=== PATIENT | male | born 1955 | race African-American/Black ===

== ENCOUNTER 2018-02-22 07:56 | Emergency (ER) | payer MEDICAID ==
[~2018-02-22] VITALS: Ht 167.6 cm; Wt 78.2 kg
[2018-02-22 07:59] VITALS: BP 157/84
[2018-02-22] MEDS ORDERED: DIPHENHYDRAMINE 25 MG CAPSULE ONE (08:28)
[2018-02-22] MEDS ORDERED: DIPHENHYDRAMINE 25 MG CAPSULE PO ONE (08:30)
== END 2018-02-22 08:54 | disposition home or self-care (01) ==
LOC: ED 08:34
DX: L40.0 Psoriasis vulgaris (principal); L50.8 Other urticaria
CPT/HCPCS: 99282; Q0163

== ENCOUNTER 2018-05-31 21:17 | Emergency (ER) | payer MEDICAID, MEDICARE ==
[~2018-05-31] VITALS: Ht 167.6 cm; Wt 68.3 kg
[2018-05-31 22:24] LABS: MEAN CORPUSCULAR HEMOGLOBIN 32.5 pg (27.5-34.5); MEAN CORPUSCULAR HGB CONC 33.4 g/dL (33.2-36.2); MEAN CORPUSCULAR VOLUME 97.3 fL (81-97); MEAN PLATELET VOLUME 8.8 fL (7.4-10.4); PLATELET COUNT 162 x10^3/uL (130-400); RED BLOOD COUNT 3.65 x10^6/uL (4.38-5.82); RED CELL DISTRIBUTION WIDTH 16.5 % (9.4-14.8)
[2018-05-31 22:28] LABS: ALANINE AMINOTRANSFERASE 56 U/L (12-78); ALBUMIN 3.6 g/dL (3.4-5.0); ANION GAP 12 mmol/L (5-15); CALCIUM 9.8 mg/dL (8.5-10.1); CHLORIDE 97 mmol/L (98-107)
[2018-05-31 22:33] LABS: ALKALINE PHOSPHATASE 199 U/L (45-117); BILIRUBIN,TOTAL 1.5 mg/dL (0.2-1.0); CREATININE 1.03 mg/dL (0.7-1.3); TOTAL PROTEIN 8.6 g/dL (6.4-8.2); TROPONIN I < 0.015 ng/mL (0.000-0.045)
[2018-05-31 22:51] LABS: MD YES
[2018-05-31 22:56] LABS: BANDS%(MANUAL) 4 % (0-7); EOS#(MANUAL) 0.05 x10^3/uL (0.0-0.4); EOS% (MANUAL) 2 % (1-7); LYMPH#(MANUAL) 0.73 x10^3/uL (1-3.4); LYMPHS% (MANUAL) 28 % (22-44); METAMYELOCYTES# (MANUAL) 0.03 x10^3/uL (0-0); METAMYELOCYTES% (MANUAL) 1 % (0-1); MONOS#(MANUAL) 0.26 x10^3/uL (0.3-2.7); MONOS% (MANUAL) 10 % (2-9); SEG#(MANUAL) 1.43 x10^3/uL (1.8-6.8); SEGS% (MANUAL) 55 % (42-75)
[2018-05-31 22:59] LABS: ANISOCYTOSIS 1+
[2018-05-31 23:00] LABS: <PLATELET ESTIMATE> ADEQUATE; <PLT MORPHOLOGY> NORMAL PLT MORPH
[2018-06-01 00:05] LABS: CULTURE INDICATED? YES; MICROSCOPIC INDICATED
[2018-06-01 00:13] LABS: AMPHETAMINE SCREEN, URINE Negative (Negative); BARBITURATE SCREEN, URINE Negative (Negative); BENZODIAZEPINE SCREEN, URINE Negative (Negative); CANNABINOID SCREEN, URINE Negative (Negative); COCAINE SCREEN, URINE Negative (Negative); METHADONE SCREEN, URINE Negative (Negative); OPIATE SCREEN, URINE Negative (Negative)
[2018-06-01 00:40] VITALS: BP 146/81
[2018-06-02] MEDS ORDERED: CEFU250T66 PO (13:38)
== END 2018-06-01 00:50 | disposition home or self-care (01) ==
LOC: MERGE 23:38 → ED 23:38 → EDBD 23:38 → ED 06-01 00:50
DX: R42 Dizziness and giddiness (principal); R53.1 Weakness; I10 Essential (primary) hypertension; Z79.899 Other long term (current) drug therapy
CPT/HCPCS: 36415; 70450; 80053; 80307; 81001; 84484; 85025; 87086; 87147; 93005; 99285

== ENCOUNTER 2018-06-01 09:53 | Inpatient (IN) | payer MEDICAID ==
[~2018-06-01] VITALS: Ht 167.6 cm; Wt 70.0 kg
[2018-06-01] MEDS ORDERED: SODIUM CHLORIDE FLUSH 10ML SYR IVF ONE (10:00)
[2018-06-01] MEDS ORDERED: SODIUM CHLORIDE 0.9% 1,000ML IVBOLUS ONE (10:00)
[2018-06-01 10:16] LABS: MEAN CORPUSCULAR HEMOGLOBIN 31.6 pg (27.5-34.5); MEAN CORPUSCULAR HGB CONC 33.1 g/dL (33.2-36.2); MEAN CORPUSCULAR VOLUME 95.4 fL (81-97); MEAN PLATELET VOLUME 8.6 fL (7.4-10.4); PLATELET COUNT 166 x10^3/uL (130-400); RED BLOOD COUNT 3.45 x10^6/uL (4.38-5.82); RED CELL DISTRIBUTION WIDTH 16.4 % (9.4-14.8)
[2018-06-01 10:26] LABS: ALANINE AMINOTRANSFERASE 49 U/L (12-78); ALBUMIN 3.3 g/dL (3.4-5.0); ANION GAP 14 mmol/L (5-15); CALCIUM 9.3 mg/dL (8.5-10.1); CHLORIDE 96 mmol/L (98-107)
[2018-06-01 10:29] LABS: ALKALINE PHOSPHATASE 171 U/L (45-117); BILIRUBIN,TOTAL 1.8 mg/dL (0.2-1.0); CREATININE 1.12 mg/dL (0.7-1.3)
[2018-06-01 10:33] LABS: MD YES
[2018-06-01 10:36] LABS: ANISOCYTOSIS 1+; BAND#(MANUAL) 0.12 x10^3/uL; BANDS%(MANUAL) 6 % (0-7); EOS#(MANUAL) 0.02 x10^3/uL (0.0-0.4); EOS% (MANUAL) 1 % (1-7); LYMPH#(MANUAL) 0.52 x10^3/uL (1-3.4); LYMPHS% (MANUAL) 26 % (22-44); METAMYELOCYTES# (MANUAL) 0.02 x10^3/uL (0-0); METAMYELOCYTES% (MANUAL) 1 % (0-1); MONOS% (MANUAL) 15 % (2-9); REACTIVE LYMPHS # (MANUAL) 0.02 x10^3/uL (0-0); REACTIVE LYMPHS % (MANUAL) 1 % (0-0); SEGS% (MANUAL) 50 % (42-75)
[2018-06-01 10:37] LABS: <PLATELET ESTIMATE> ADEQUATE; <PLT MORPHOLOGY> NORMAL PLT MORPH
[2018-06-01 11:48] LABS: CULTURE INDICATED? YES; MICROSCOPIC INDICATED
[2018-06-01 11:57] LABS: AMPHETAMINE SCREEN, URINE Negative (Negative); BARBITURATE SCREEN, URINE Negative (Negative); BENZODIAZEPINE SCREEN, URINE Negative (Negative); CANNABINOID SCREEN, URINE Negative (Negative); COCAINE SCREEN, URINE Negative (Negative); METHADONE SCREEN, URINE Negative (Negative); OPIATE SCREEN, URINE Negative (Negative)
[2018-06-01] MEDS ORDERED: POTASSIUM CHLORIDE 40 MEQ in SODIUM CHLORIDE 0.9% 500 ML IV ONE (12:00)
[2018-06-01] MEDS ORDERED: CEFTRIAXONE PMX 1GM/50ML 50 ML IV ONE (12:30)
[2018-06-01] MEDS ORDERED: CEFTRIAXONE PMX 1GM/50ML 50 ML ONE (12:37)
[2018-06-01] MEDS ORDERED: LORazepam 1MG TABLET PO PRN ×3 (14:00)
[2018-06-01] MEDS ORDERED: LORazepam 0.5MG TABLET PO PRN (14:00)
[2018-06-01] MEDS: POTASSIUM CHLORIDE 40 MEQ in SODIUM CHLORIDE 0.9% 500 ML IV ONE ×2 (14:00→18:50)
[2018-06-01] MEDS ORDERED: LORazepam 2 MG/ML, 1ML IV PRN ×4 (14:00)
[2018-06-01 14:29] VITALS: BP 155/92
[2018-06-01 15:29] LABS: THYROID STIMULATING HORMONE 0.95 mIU/L (0.358-3.740)
[2018-06-01] MEDS: HEPARIN 5,000 UNITS/ML, 1ML SQ SCH (16:28)
[2018-06-01] MEDS: THIAMINE 100 MG, MVI ADULT 10 ML, FOLIC ACID 1 MG in D5%-0.9% NACL 1,000 ML IV SCH (16:48)
[2018-06-01] MEDS: POTASSIUM CHLORIDE 20 MEQ TAB.ER.PRT PO SCH (18:49)
[2018-06-01 19:15] VITALS: BP 127/79
[2018-06-01] MEDS ORDERED: MAGNESIUM SULFATE 6 GM in SODIUM CHLORIDE 0.9% 150 ML IV ONE (20:30)
[2018-06-01] MEDS ORDERED: POTASSIUM PHOSPHATE 22 MEQ in SODIUM CHLORIDE 0.9% 500 ML IV ONE (20:30)
[2018-06-02 00:12] LABS: CLOSTRIDIUM DIFFICILE ANTIGEN NEGATIVE; CLOSTRIDIUM DIFFICILE TOXIN NEGATIVE (Negative)
[2018-06-02] MEDS: HEPARIN 5,000 UNITS/ML, 1ML SQ SCH ×3 (00:38→16:00)
[2018-06-02 00:40] VITALS: BP 134/84
[2018-06-02 05:54] LABS: BASOPHILS % (AUTO) 0 % (0-1); EOSINOPHILS # (AUTO) 0.06 x10^3/uL (0-0.4); EOSINOPHILS % (AUTO) 3 % (1-7); LYMPHOCYTES # (AUTO) 0.65 x10^3/uL (1-3.4); LYMPHOCYTES % (AUTO) 33 % (22-44); MD NO; MEAN CORPUSCULAR HEMOGLOBIN 32.4 pg (27.5-34.5); MEAN CORPUSCULAR HGB CONC 33.6 g/dL (33.2-36.2); MEAN CORPUSCULAR VOLUME 96.6 fL (81-97); MEAN PLATELET VOLUME 8.4 fL (7.4-10.4); MONOCYTES # (AUTO) 0.24 x10^3/uL (0.2-0.8); MONOCYTES % (AUTO) 12 % (2-9); NEUTROPHILS # (AUTO) 1.01 x10^3/uL (1.8-6.8); NEUTROPHILS % (AUTO) 52 % (42-75); PLATELET COUNT 132 x10^3/uL (130-400); RED CELL DISTRIBUTION WIDTH 16.7 % (9.4-14.8)
[2018-06-02 05:59] LABS: ALBUMIN 2.6 g/dL (3.4-5.0); ANION GAP 6 mmol/L (5-15); CALCIUM 8.3 mg/dL (8.5-10.1); CHLORIDE 109 mmol/L (98-107)
[2018-06-02 06:11] LABS: CREATININE 0.62 mg/dL (0.7-1.3)
[2018-06-02 06:12] LABS: ALANINE AMINOTRANSFERASE 34 U/L (12-78); ALKALINE PHOSPHATASE 134 U/L (45-117); BILIRUBIN,TOTAL 1.4 mg/dL (0.2-1.0); THYROID STIMULATING HORMONE 0.686 mIU/L (0.358-3.740); TOTAL PROTEIN 6.3 g/dL (6.4-8.2)
[2018-06-02 08:00] VITALS: BP 130/79
[2018-06-02] MEDS: POTASSIUM CHLORIDE 20 MEQ TAB.ER.PRT PO SCH ×3 (09:26→17:00)
[2018-06-02] MEDS ORDERED: CEFTRIAXONE PMX 1GM/50ML 50 ML IV SCH (12:00)
[2018-06-02] MEDS ORDERED: CEFTRIAXONE 1,000 MG in SODIUM CHLORIDE 0.9% 50 ML IVPB SCH (12:30)
[2018-06-02 12:50] VITALS: BP 130/68
[2018-06-02] MEDS ORDERED: CEFU250T66 PO (13:38)
[2018-06-02] MEDS: THIAMINE 100 MG, MVI ADULT 10 ML, FOLIC ACID 1 MG in D5%-0.9% NACL 1,000 ML IV SCH (14:00)
[2018-06-02] MEDS ORDERED: PNEUMOCOCCAL 23 VACCINE IM-VACC ONE (17:30)
== END 2018-06-02 17:39 | disposition home or self-care (01) | DRG 872 ==
LOC: ED 11:33 → EDIP 12:29 → 4WST 13:34
PROVIDERS: ADMIT Hospitalist; ATTEND Hospitalist
DX: A41.9 Sepsis, unspecified organism (principal); E44.1 Mild protein-calorie malnutrition; E87.1 Hypo-osmolality and hyponatremia; N30.00 Acute cystitis without hematuria; D64.9 Anemia, unspecified; D70.9 Neutropenia, unspecified; E83.42 Hypomagnesemia; E86.0 Dehydration; E87.6 Hypokalemia; F10.129 Alcohol abuse with intoxication, unspecified; I10 Essential (primary) hypertension; K70.10 Alcoholic hepatitis without ascites; B95.1 Streptococcus, group B, as the cause of diseases classified elsewhere; K76.0 Fatty (change of) liver, not elsewhere classified; Z91.83 Wandering in diseases classified elsewhere; Z68.24 Body mass index [BMI] 24.0-24.9, adult; R41.0 Disorientation, unspecified
CPT/HCPCS: 36415; 70450; 76700; 80053; 80307; 81001; 82140; 82607; 83735; 84100; 84443; 85025; 86704; 86706; 86708; 86803; 87040; 87086; 87147; 87324; 87340; 87806; 90732; 93005; 96360; 96361; J0696; J1644; J3411; J3475; J3480; J7042; G0475; J7030; J7040

== ENCOUNTER 2018-07-29 05:23 | Inpatient (IN) | payer MEDICAID ==
[~2018-07-29] VITALS: Ht 167.6 cm; Wt 66.0 kg
[~2018-07-29 05:23] MED LIST: CEFU250T66 PO; DOCU-131 PO; ERGO500017 PO; FOLI-17 PO; LISI-167 PO; MAGN64TA7 PO; THIA100T67 PO
[2018-07-29] MEDS ORDERED: SODIUM CHLORIDE FLUSH 10ML SYR IVF ONE (06:00)
[2018-07-29] MEDS ORDERED: LORazepam 2 MG/ML, 1ML IVPush ONE (06:00)
[2018-07-29 06:45] LABS: BASOPHILS # (AUTO) 0.04 x10^3/uL (0-0.1); BASOPHILS % (AUTO) 1 % (0-1); EOSINOPHILS # (AUTO) 0.42 x10^3/uL (0-0.4); EOSINOPHILS % (AUTO) 5 % (1-7); LYMPHOCYTES # (AUTO) 1.81 x10^3/uL (1-3.4); LYMPHOCYTES % (AUTO) 21 % (22-44); MD NO; MEAN CORPUSCULAR HEMOGLOBIN 30.6 pg (27.5-34.5); MEAN CORPUSCULAR HGB CONC 33.5 g/dL (33.2-36.2); MEAN CORPUSCULAR VOLUME 91.5 fL (81-97); MEAN PLATELET VOLUME 8.1 fL (7.4-10.4); MONOCYTES # (AUTO) 0.53 x10^3/uL (0.2-0.8); MONOCYTES % (AUTO) 6 % (2-9); NEUTROPHILS # (AUTO) 5.91 x10^3/uL (1.8-6.8); NEUTROPHILS % (AUTO) 68 % (42-75); PLATELET COUNT 431 x10^3/uL (130-400); RED BLOOD COUNT 3.36 x10^6/uL (4.38-5.82); RED CELL DISTRIBUTION WIDTH 16.1 % (9.4-14.8)
[2018-07-29 06:56] LABS: ALBUMIN 2.6 g/dL (3.4-5.0); ANION GAP 8 mmol/L (5-15); CALCIUM 8.7 mg/dL (8.5-10.1); CHLORIDE 107 mmol/L (98-107)
[2018-07-29 06:57] LABS: SALICYLATE LEVEL < 1.7 mg/dL (2.8-20.0)
[2018-07-29 06:59] LABS: ALANINE AMINOTRANSFERASE 31 U/L (12-78); ALKALINE PHOSPHATASE 175 U/L (45-117); BILIRUBIN,TOTAL 0.5 mg/dL (0.2-1.0); CREATININE 0.62 mg/dL (0.7-1.3); TOTAL PROTEIN 8.4 g/dL (6.4-8.2)
[2018-07-29] MEDS ORDERED: LORazepam 2 MG/ML, 1ML ONE (07:05)
[2018-07-29 07:13] LABS: ACETAMINOPHEN < 2 mcg/mL (10-30)
[2018-07-29 07:30] LABS: MICROSCOPIC NOT IND
[2018-07-29] MEDS ORDERED: POTASSIUM CHLORIDE 20 MEQ TAB.ER.PRT PO ONE (07:30)
[2018-07-29 07:31] LABS: CULTURE INDICATED? NO
[2018-07-29] MEDS ORDERED: POTASSIUM CHLORIDE 20 MEQ TAB.ER.PRT ONE (07:31)
[2018-07-29 07:32] LABS: TROPONIN I < 0.015 ng/mL (0.000-0.045)
[2018-07-29] MEDS ORDERED: POTASSIUM CHLORIDE 20 MEQ in SODIUM CHLORIDE 0.9% 1,000 ML IV ONE (07:33)
[2018-07-29] MEDS ORDERED: ACETAMINOPHEN 325 MG TABLET PO PRN (08:00)
[2018-07-29] MEDS ORDERED: LABETALOL 5MG/ML, 20ML IVPush PRN ×2 (08:00→11:30)
[2018-07-29] MEDS ORDERED: ONDANSETRON 2MG/ML, 2ML IVPush PRN (08:00)
[2018-07-29] MEDS ORDERED: SODIUM CHLORIDE FLUSH 10ML SYR IVF PRN (08:00)
[2018-07-29] MEDS ORDERED: POTASSIUM CHLORIDE 40 MEQ in SODIUM CHLORIDE 0.9% 500 ML IV ONE (08:30)
[2018-07-29 08:42] VITALS: BP 192/96
[2018-07-29] MEDS ORDERED: DOCUSATE 100 MG CAPSULE PO PRN (09:00)
[2018-07-29] MEDS ORDERED: ERGOCALCIFEROL 50,000 UNIT CAPSULE PO SCH (09:00)
[2018-07-29] MEDS: SODIUM CHLORIDE 0.9% 1,000 ML IV SCH (09:06)
[2018-07-29] MEDS: FOLIC ACID 1 MG TABLET PO SCH (09:07)
[2018-07-29] MEDS: MAGNESIUM CHLORIDE 64 MG TABLET.DR PO SCH ×2 (09:07→20:58)
[2018-07-29] MEDS: LISINOPRIL 10 MG TABLET PO SCH (09:07)
[2018-07-29] MEDS: THIAMINE 100MG TABLET PO SCH (09:07)
[2018-07-29] MEDS: AMLODIPINE 5 MG TABLET PO SCH (09:07)
[2018-07-29] MEDS: ENOXAPARIN 40 MG/0.4 ML SQ SCH (09:07)
[2018-07-29 09:12] LABS: AMPHETAMINE SCREEN, URINE Negative (Negative); BARBITURATE SCREEN, URINE Negative (Negative); BENZODIAZEPINE SCREEN, URINE Negative (Negative); CANNABINOID SCREEN, URINE Negative (Negative); COCAINE SCREEN, URINE Negative (Negative); METHADONE SCREEN, URINE Negative (Negative); OPIATE SCREEN, URINE Negative (Negative)
[2018-07-29 09:43] VITALS: BP 189/92
[2018-07-29 10:36] LABS: AMPHETAMINE SCREEN, URINE Negative (Negative); BARBITURATE SCREEN, URINE Negative (Negative); BENZODIAZEPINE SCREEN, URINE Negative (Negative); CANNABINOID SCREEN, URINE Negative (Negative); COCAINE SCREEN, URINE Negative (Negative); METHADONE SCREEN, URINE Negative (Negative); OPIATE SCREEN, URINE Negative (Negative)
[2018-07-29] MEDS ORDERED: MAGNESIUM SULFATE PMX 2GM/50ML 50 ML IV ONE (11:30)
[2018-07-29 11:39] VITALS: BP 173/81
[2018-07-29] MEDS ORDERED: HYDROCHLOROTHIAZIDE 25 MG TABLET PO ONE (12:30)
[2018-07-29] MEDS: NICOTINE 21 MG/24 HR PATCH.TD24 TD SCH (13:30)
[2018-07-29] MEDS ORDERED: ENALAPRILAT 1.25 MG/ML, 2ML IV PRN (13:30)
[2018-07-29 13:45] VITALS: BP 147/90
[2018-07-29 16:25] LABS: ANION GAP 7 mmol/L (5-15); CALCIUM 8.8 mg/dL (8.5-10.1); CHLORIDE 107 mmol/L (98-107); CREATININE 0.57 mg/dL (0.7-1.3)
[2018-07-29] MEDS ORDERED: GADOBUTROL 7.5 MMOL/7.5 ML PFS ONE (16:37)
[2018-07-29] MEDS: POTASSIUM CHLORIDE 20 MEQ TAB.ER.PRT PO SCH (17:58)
[2018-07-29 20:35] VITALS: BP 165/85
[2018-07-29] MEDS: ATORVASTATIN 40 MG TABLET PO SCH (20:58)
[2018-07-30 02:19] VITALS: BP 150/81
[2018-07-30 06:10] LABS: CHLORIDE 106 mmol/L (98-107)
[2018-07-30 06:14] LABS: ALANINE AMINOTRANSFERASE 28 U/L (12-78); ALBUMIN 2.2 g/dL (3.4-5.0); ALKALINE PHOSPHATASE 156 U/L (45-117); ANION GAP 10 mmol/L (5-15); BILIRUBIN,TOTAL 0.5 mg/dL (0.2-1.0); CALCIUM 8.7 mg/dL (8.5-10.1); CREATININE 0.62 mg/dL (0.7-1.3); TOTAL PROTEIN 7.2 g/dL (6.4-8.2)
[2018-07-30 06:22] LABS: BASOPHILS # (AUTO) 0.04 x10^3/uL (0-0.1); BASOPHILS % (AUTO) 1 % (0-1); EOSINOPHILS # (AUTO) 0.29 x10^3/uL (0-0.4); EOSINOPHILS % (AUTO) 4 % (1-7); LYMPHOCYTES # (AUTO) 1.99 x10^3/uL (1-3.4); LYMPHOCYTES % (AUTO) 26 % (22-44); MD NO; MEAN CORPUSCULAR HEMOGLOBIN 30.9 pg (27.5-34.5); MEAN CORPUSCULAR HGB CONC 33.3 g/dL (33.2-36.2); MEAN CORPUSCULAR VOLUME 92.6 fL (81-97); MEAN PLATELET VOLUME 8.6 fL (7.4-10.4); MONOCYTES % (AUTO) 9 % (2-9); NEUTROPHILS # (AUTO) 4.75 x10^3/uL (1.8-6.8); NEUTROPHILS % (AUTO) 61 % (42-75); PLATELET COUNT 377 x10^3/uL (130-400); RED BLOOD COUNT 3.19 x10^6/uL (4.38-5.82); RED CELL DISTRIBUTION WIDTH 15.3 % (9.4-14.8)
[2018-07-30 06:50] VITALS: BP 147/88
[2018-07-30] MEDS: SODIUM CHLORIDE 0.9% 1,000 ML IV SCH (07:30)
[2018-07-30] MEDS: MAGNESIUM CHLORIDE 64 MG TABLET.DR PO SCH ×2 (08:56→20:04)
[2018-07-30] MEDS: FOLIC ACID 1 MG TABLET PO SCH (08:56)
[2018-07-30] MEDS: AMLODIPINE 5 MG TABLET PO SCH (08:56)
[2018-07-30] MEDS: ENOXAPARIN 40 MG/0.4 ML SQ SCH (08:57)
[2018-07-30] MEDS: POTASSIUM CHLORIDE 20 MEQ TAB.ER.PRT PO SCH ×2 (08:57→17:15)
[2018-07-30] MEDS: ASPIRIN 81 MG TABLET CHEW PO SCH (08:57)
[2018-07-30] MEDS: LISINOPRIL 10 MG TABLET PO SCH (08:57)
[2018-07-30] MEDS: THIAMINE 100MG TABLET PO SCH (08:57)
[2018-07-30] MEDS ORDERED: HYDROCHLOROTHIAZIDE 25 MG TABLET PO SCH (09:00)
[2018-07-30 14:20] VITALS: BP 166/84
[2018-07-30] MEDS: NICOTINE 21 MG/24 HR PATCH.TD24 TD SCH (17:15)
[2018-07-30 17:19] VITALS: BP 166/78
[2018-07-30 18:39] VITALS: BP 174/90
[2018-07-30] MEDS: ATORVASTATIN 40 MG TABLET PO SCH (20:03)
[2018-07-30] MEDS: MAGNESIUM OXIDE 400 MG TABLET PO SCH (20:04)
[2018-07-30 20:51] VITALS: BP 156/83
[2018-07-31 00:05] VITALS: BP 181/84
[2018-07-31 02:49] VITALS: BP 162/84
[2018-07-31 05:42] LABS: BASOPHILS # (AUTO) 0.04 x10^3/uL (0-0.1); BASOPHILS % (AUTO) 1 % (0-1); EOSINOPHILS # (AUTO) 0.32 x10^3/uL (0-0.4); EOSINOPHILS % (AUTO) 4 % (1-7); LYMPHOCYTES # (AUTO) 2.02 x10^3/uL (1-3.4); LYMPHOCYTES % (AUTO) 26 % (22-44); MD NO; MEAN CORPUSCULAR HEMOGLOBIN 31.5 pg (27.5-34.5); MEAN CORPUSCULAR HGB CONC 33.5 g/dL (33.2-36.2); MEAN PLATELET VOLUME 8.3 fL (7.4-10.4); MONOCYTES # (AUTO) 0.65 x10^3/uL (0.2-0.8); MONOCYTES % (AUTO) 8 % (2-9); NEUTROPHILS # (AUTO) 4.79 x10^3/uL (1.8-6.8); NEUTROPHILS % (AUTO) 61 % (42-75); PLATELET COUNT 432 x10^3/uL (130-400); RED BLOOD COUNT 2.98 x10^6/uL (4.38-5.82); RED CELL DISTRIBUTION WIDTH 15.9 % (9.4-14.8)
[2018-07-31 05:52] LABS: ALBUMIN 2.3 g/dL (3.4-5.0); ANION GAP 9 mmol/L (5-15); CALCIUM 8.8 mg/dL (8.5-10.1); CHLORIDE 106 mmol/L (98-107)
[2018-07-31 05:56] LABS: ALANINE AMINOTRANSFERASE 26 U/L (12-78); ALKALINE PHOSPHATASE 161 U/L (45-117); BILIRUBIN,TOTAL 0.4 mg/dL (0.2-1.0); TOTAL PROTEIN 7.5 g/dL (6.4-8.2)
[2018-07-31 06:35] VITALS: BP 169/84
[2018-07-31] MEDS ORDERED: HYDROCHLOROTHIAZIDE 25 MG TABLET PO SCH (09:00)
[2018-07-31] MEDS ORDERED: AMLODIPINE 5 MG TABLET PO SCH (09:00)
[2018-07-31] MEDS ORDERED: LISINOPRIL 20 MG TABLET PO SCH (09:00)
[2018-07-31] MEDS: ENOXAPARIN 40 MG/0.4 ML SQ SCH (09:05)
[2018-07-31] MEDS: ASPIRIN 81 MG TABLET CHEW PO SCH (09:05)
[2018-07-31] MEDS: MAGNESIUM OXIDE 400 MG TABLET PO SCH (09:06)
[2018-07-31] MEDS: FOLIC ACID 1 MG TABLET PO SCH (09:06)
[2018-07-31] MEDS: THIAMINE 100MG TABLET PO SCH (09:06)
[2018-07-31] MEDS ORDERED: HYDR25TA6 PO (11:00)
[2018-07-31] MEDS ORDERED: AMLO5TAB2 PO (11:00)
[2018-07-31] MEDS ORDERED: ASPI-515 PO (11:00)
[2018-07-31] MEDS ORDERED: MAGN400T26 PO (11:00)
[2018-07-31] MEDS ORDERED: NICO-487 TD (11:00)
[2018-07-31] MEDS ORDERED: LISI-170 PO (11:00)
[2018-07-31] MEDS ORDERED: ATOR40TA78 PO (11:00)
[2018-07-31 13:37] VITALS: BP 146/86
[2018-07-31] MEDS: NICOTINE 21 MG/24 HR PATCH.TD24 TD SCH (16:36)
== END 2018-07-31 17:07 | DRG 433 ==
LOC: ED 07:24 → EDIP 07:33 → 4EST 08:34
PROVIDERS: ADMIT Internal Medicine; ATTEND Internal Medicine
DX: K70.10 Alcoholic hepatitis without ascites (principal); I67.4 Hypertensive encephalopathy; E44.0 Moderate protein-calorie malnutrition; D64.9 Anemia, unspecified; E87.6 Hypokalemia; F01.50 Vascular dementia, unspecified severity, without behavioral disturbance, psychotic disturbance, mood disturbance, and anxiety; F10.10 Alcohol abuse, uncomplicated; F17.200 Nicotine dependence, unspecified, uncomplicated; I10 Essential (primary) hypertension; I16.0 Hypertensive urgency; Z59.0 Homelessness; Z86.73 Personal history of transient ischemic attack (TIA), and cerebral infarction without residual deficits; Z68.23 Body mass index [BMI] 23.0-23.9, adult
CPT/HCPCS: 36415; 70450; 70553; 71045; 80048; 80053; 80307; 80329; 81003; 82140; 82607; 83735; 84443; 84484; 85025; 86780; 87806; 93005; 96374; 99285; A9585; J1650; J3480; G0475; G0480; J2060; J3475; J7030; J7040

== ENCOUNTER 2018-12-01 09:21 | Inpatient (IN) | payer MEDICAID ==
[~2018-12-01] VITALS: Ht 167.6 cm; Wt 77.9 kg
[~2018-12-01 09:21] MED LIST changes: +AMLO-150 PO; +ASPI-515 PO; +ATOR40TA78 PO; +HYDR25TA6 PO; +LISI-170 PO; +MAGN400T26 PO; +NICO-487 TD
[2018-12-01] MEDS ORDERED: METHOCARBAMOL 750 MG TABLET ONE (09:52)
[2018-12-01] MEDS ORDERED: IBUPROFEN 200 MG TABLET ONE (09:52)
[2018-12-01 09:59] LABS: BASOPHILS # (AUTO) 0.02 x10^3/uL (0-0.1); BASOPHILS % (AUTO) 0 % (0-1); EOSINOPHILS # (AUTO) 0.14 x10^3/uL (0-0.4); EOSINOPHILS % (AUTO) 2 % (1-7); LYMPHOCYTES # (AUTO) 2.36 x10^3/uL (1-3.4); LYMPHOCYTES % (AUTO) 25 % (22-44); MD NO; MEAN CORPUSCULAR HEMOGLOBIN 27.9 pg (27.5-34.5); MEAN CORPUSCULAR VOLUME 84.3 fL (81-97); MEAN PLATELET VOLUME 7.8 fL (7.4-10.4); MONOCYTES # (AUTO) 0.83 x10^3/uL (0.2-0.8); MONOCYTES % (AUTO) 9 % (2-9); NEUTROPHILS # (AUTO) 6.16 x10^3/uL (1.8-6.8); NEUTROPHILS % (AUTO) 65 % (42-75); PLATELET COUNT 249 x10^3/uL (130-400); RED BLOOD COUNT 4.08 x10^6/uL (4.38-5.82); RED CELL DISTRIBUTION WIDTH 13.8 % (9.4-14.8)
[2018-12-01] MEDS ORDERED: METHOCARBAMOL 750 MG TABLET PO ONE (10:00)
[2018-12-01] MEDS ORDERED: IBUPROFEN 200 MG TABLET PO ONE (10:00)
[2018-12-01 10:02] LABS: ALANINE AMINOTRANSFERASE 26 U/L (12-78); ALBUMIN 3.9 g/dL (3.4-5.0); ANION GAP 9 mmol/L (5-15); CALCIUM 9.9 mg/dL (8.5-10.1); CHLORIDE 104 mmol/L (98-107); CREATININE 0.94 mg/dL (0.7-1.3)
--- NOTE | 2018-12-01 10:02 | NUR ---
pt laying on gurney awake & comfortable, responds approp to staff, NAD, comfort measures provided, friend at BS, call light within reach. pt to CT.
[2018-12-01 10:04] LABS: ALKALINE PHOSPHATASE 105 U/L (45-117); BILIRUBIN,TOTAL 0.3 mg/dL (0.2-1.0); TOTAL PROTEIN 8.4 g/dL (6.4-8.2)
--- NOTE | 2018-12-01 10:53 | NUR ---
pt continues to lay on gurney awake & comfortable, responds approp to staff, NAD, comfort measures provided, call light within reach.
[2018-12-01 10:56] LABS: MICROSCOPIC NOT IND
[2018-12-01 10:59] LABS: CULTURE INDICATED? NO
[2018-12-01] MEDS ORDERED: LORA-445 PO (11:25)
[2018-12-01] MEDS ORDERED: SODIUM CHLORIDE FLUSH 10ML SYR IVF PRN (11:30)
--- NOTE | 2018-12-01 11:49 | NUR ---
Pt to be admitted to [facility], room 402-1. Report called to Jono.
[2018-12-01] MEDS ORDERED: LORazepam 0.5MG TABLET PO PRN (12:00)
[2018-12-01] MEDS ORDERED: GABAPENTIN 300 MG CAPSULE PO PRN (12:00)
[2018-12-01] MEDS ORDERED: CYCLOBENZAPRINE 10 MG TABLET PO PRN (12:00)
[2018-12-01] MEDS ORDERED: ENALAPRILAT 1.25 MG/ML, 2ML IV PRN (12:00)
[2018-12-01] MEDS ORDERED: POLYETHYLENE GLYCOL 17 GM PACKET PO PRN (12:00)
[2018-12-01] MEDS ORDERED: ACETAMINOPHEN 325 MG TABLET PO PRN (12:00)
[2018-12-01] MEDS ORDERED: BISACODYL 10 MG SUPP PR PRN (12:00)
[2018-12-01] MEDS ORDERED: ONDANSETRON 2MG/ML, 2ML IVPush PRN (12:00)
[2018-12-01] MEDS ORDERED: DOCUSATE 100 MG CAPSULE PO PRN (12:00)
[2018-12-01 13:14] VITALS: BP 114/73
[2018-12-01 16:03] VITALS: BP 135/74
[2018-12-01 18:16] VITALS: BP 129/76
[2018-12-01 19:58] VITALS: BP 133/79
[2018-12-01] MEDS: MAGNESIUM OXIDE 400 MG TABLET PO SCH (20:32)
[2018-12-01] MEDS ORDERED: ATORVASTATIN 80 MG TABLET PO SCH (21:00)
[2018-12-02 03:30] VITALS: BP 127/68
[2018-12-02 06:26] LABS: CHOL/HDL RATIO 2.3; LDL/HDL RATIO 1.1 (0.5-3.0)
[2018-12-02 07:50] VITALS: BP 112/72
[2018-12-02] MEDS: MAGNESIUM OXIDE 400 MG TABLET PO SCH (08:56)
[2018-12-02] MEDS ORDERED: ASPIRIN 81 MG TABLET CHEW PO/NG SCH (09:00)
[2018-12-02] MEDS ORDERED: THIAMINE 100MG TABLET PO SCH (09:00)
[2018-12-02] MEDS ORDERED: AMLODIPINE 10 MG TAB PO SCH (09:00)
[2018-12-02] MEDS ORDERED: FOLIC ACID 1 MG TABLET PO SCH (09:00)
[2018-12-02] MEDS ORDERED: LISINOPRIL 20 MG TABLET PO SCH (09:00)
[2018-12-02] MEDS ORDERED: CYCL-259 PO (11:48)
[2018-12-02 11:55] VITALS: BP 119/76
[2018-12-02] MEDS ORDERED: SODIUM CHLORIDE 0.9%, 500ML IVBOLUS ONE (14:00)
[2018-12-02 14:08] LABS: THYROID STIMULATING HORMONE 0.763 mIU/L (0.358-3.740)
[2018-12-02] MEDS ORDERED: MAGNESIUM OXIDE 400 MG TABLET PO SCH (21:00)
== END 2018-12-02 18:29 | DRG 552 ==
LOC: ED 11:04 → EDIP 11:34 → 4WST 12:07 → 4EST 20:58
PROVIDERS: ADMIT Hospitalist; ATTEND Hospitalist
DX: M62.830 Muscle spasm of back (principal); F02.81 Dementia in other diseases classified elsewhere, unspecified severity, with behavioral disturbance; S39.012A Strain of muscle, fascia and tendon of lower back, initial encounter; R73.9 Hyperglycemia, unspecified; D64.9 Anemia, unspecified; I11.9 Hypertensive heart disease without heart failure; R62.7 Adult failure to thrive; M51.36 Other intervertebral disc degeneration, lumbar region; F10.10 Alcohol abuse, uncomplicated; G30.0 Alzheimer's disease with early onset; I65.23 Occlusion and stenosis of bilateral carotid arteries; Z82.3 Family history of stroke; Z86.73 Personal history of transient ischemic attack (TIA), and cerebral infarction without residual deficits; Z83.3 Family history of diabetes mellitus; Z87.891 Personal history of nicotine dependence; Z80.9 Family history of malignant neoplasm, unspecified
CPT/HCPCS: 36415; 70450; 70551; 71045; 72110; 80053; 80061; 81003; 83735; 84443; 85025; 93005; 93306; 93880; G0378; 92523-GN; J7040

== ENCOUNTER 2019-08-10 18:48 | Inpatient (IN) | payer MEDICAID ==
[~2019-08-10] VITALS: Ht 170.2 cm; Wt 82.8 kg
[~2019-08-10 18:48] MED LIST changes: +CYCL-259 PO; +LORA-445 PO
[2019-08-10] MEDS ORDERED: SODIUM CHLORIDE FLUSH 10ML SYR IVF ONE (19:30)
[2019-08-10 19:44] LABS: ALBUMIN 3.5 g/dL (3.4-5.0); ANION GAP 8 mmol/L (5-15); CALCIUM 8.9 mg/dL (8.5-10.1); CHLORIDE 109 mmol/L (98-107)
[2019-08-10 19:49] LABS: ALANINE AMINOTRANSFERASE 30 U/L (12-78); ALKALINE PHOSPHATASE 121 U/L (45-117); BILIRUBIN,TOTAL 0.3 mg/dL (0.2-1.0); CREATININE 1.07 mg/dL (0.7-1.3); TOTAL PROTEIN 7.4 g/dL (6.4-8.2); TROPONIN I < 0.015 ng/mL (0.000-0.045)
[2019-08-10 20:18] LABS: BASOPHILS # (AUTO) 0.01 x10^3/uL (0-0.1); BASOPHILS % (AUTO) 0 % (0-1); EOSINOPHILS # (AUTO) 0.05 x10^3/uL (0-0.4); EOSINOPHILS % (AUTO) 1 % (1-7); LYMPHOCYTES # (AUTO) 1.28 x10^3/uL (1-3.4); LYMPHOCYTES % (AUTO) 14 % (22-44); MD NO; MEAN CORPUSCULAR HGB CONC 31.9 g/dL (33.2-36.2); MEAN CORPUSCULAR VOLUME 84.6 fL (81-97); MEAN PLATELET VOLUME 8.6 fL (7.4-10.4); MONOCYTES # (AUTO) 0.37 x10^3/uL (0.2-0.8); MONOCYTES % (AUTO) 4 % (2-9); NEUTROPHILS # (AUTO) 7.58 x10^3/uL (1.8-6.8); NEUTROPHILS % (AUTO) 82 % (42-75); PLATELET COUNT 196 x10^3/uL (130-400); RED BLOOD COUNT 4.66 x10^6/uL (4.38-5.82); RED CELL DISTRIBUTION WIDTH 15.9 % (9.4-14.8)
[2019-08-10] MEDS ORDERED: LORazepam 0.5MG TABLET ONE (21:17)
[2019-08-10] MEDS ORDERED: GABA-826 PO (21:26)
[2019-08-10] MEDS ORDERED: DONE5TAB52 PO (21:26)
[2019-08-10] MEDS ORDERED: ACETAMINOPHEN 325 MG TABLET PO PRN (22:00)
[2019-08-10] MEDS ORDERED: POLYETHYLENE GLYCOL 17 GM PACKET PO PRN (22:00)
[2019-08-10] MEDS ORDERED: LORazepam 0.5MG TABLET PO PRN (22:00)
[2019-08-10] MEDS ORDERED: ONDANSETRON ODT 4 MG PO PRN (22:00)
[2019-08-10] MEDS ORDERED: BISACODYL 10 MG SUPP PR PRN (22:00)
[2019-08-10 22:21] LABS: HEMOGLOBIN A1C 6.3 % (4.2-6.3)
[2019-08-10] MEDS ORDERED: DONEPEZIL 5 MG TABLET PO SCH (23:00)
[2019-08-10] MEDS ORDERED: ATORVASTATIN 40 MG TABLET PO SCH (23:00)
[2019-08-10 23:08] VITALS: BP 119/69
[2019-08-10] MEDS: SODIUM CHLORIDE FLUSH 10ML SYR IVF SCH (23:19)
[2019-08-10 23:20] VITALS: BP 120/67
[2019-08-10 23:22] VITALS: BP 123/72
[2019-08-10 23:23] VITALS: BP 126/73
[2019-08-10 23:45] LABS: MICROSCOPIC AUTO
[2019-08-10 23:53] LABS: CULTURE INDICATED? YES
[2019-08-11 01:52] VITALS: BP 99/59
[2019-08-11 06:14] LABS: BASOPHILS # (AUTO) 0.04 x10^3/uL (0-0.1); BASOPHILS % (AUTO) 0 % (0-1); EOSINOPHILS # (AUTO) 0.09 x10^3/uL (0-0.4); EOSINOPHILS % (AUTO) 1 % (1-7); LYMPHOCYTES # (AUTO) 2.38 x10^3/uL (1-3.4); LYMPHOCYTES % (AUTO) 24 % (22-44); MD NO; MEAN CORPUSCULAR HEMOGLOBIN 26.9 pg (27.5-34.5); MEAN CORPUSCULAR HGB CONC 32.3 g/dL (33.2-36.2); MEAN CORPUSCULAR VOLUME 83.1 fL (81-97); MEAN PLATELET VOLUME 8.2 fL (7.4-10.4); MONOCYTES % (AUTO) 4 % (2-9); NEUTROPHILS % (AUTO) 71 % (42-75); PLATELET COUNT 205 x10^3/uL (130-400); RED BLOOD COUNT 4.53 x10^6/uL (4.38-5.82)
[2019-08-11 06:26] LABS: CHLORIDE 107 mmol/L (98-107)
[2019-08-11 06:35] LABS: ALANINE AMINOTRANSFERASE 30 U/L (12-78); ALBUMIN 3.4 g/dL (3.4-5.0); ALKALINE PHOSPHATASE 109 U/L (45-117); ANION GAP 9 mmol/L (5-15); BILIRUBIN,TOTAL 0.3 mg/dL (0.2-1.0); TOTAL PROTEIN 7.2 g/dL (6.4-8.2); TROPONIN I < 0.015 ng/mL (0.000-0.045)
[2019-08-11 07:12] VITALS: BP 115/69
[2019-08-11] MEDS ORDERED: SENNA/DOCUSATE TABLET PO SCH (09:00)
[2019-08-11] MEDS ORDERED: ASPIRIN 81 MG TABLET EC PO SCH (09:00)
[2019-08-11] MEDS ORDERED: LISINOPRIL 20 MG TABLET PO SCH (09:00)
[2019-08-11] MEDS ORDERED: AMLODIPINE 5 MG TABLET PO SCH (09:00)
[2019-08-11] MEDS ORDERED: GABAPENTIN 100 MG CAPSULE PO SCH (09:00)
[2019-08-11] MEDS: SODIUM CHLORIDE FLUSH 10ML SYR IVF SCH (10:11)
[2019-08-11 14:35] VITALS: BP 115/68
[2019-08-11 18:58] VITALS: BP 112/67
[2019-08-11] MEDS ORDERED: DONEPEZIL 5 MG TABLET PO SCH (21:00)
[2019-08-11] MEDS ORDERED: ATORVASTATIN 40 MG TABLET PO SCH (21:00)
== END 2019-08-11 22:49 | DRG 48 ==
LOC: ED 19:29 → EDIP 21:36 → 4WST 22:10
PROVIDERS: ADMIT Internal Medicine; ATTEND Internal Medicine
DX: G90.8 Other disorders of autonomic nervous system (principal); F01.50 Vascular dementia, unspecified severity, without behavioral disturbance, psychotic disturbance, mood disturbance, and anxiety; I11.9 Hypertensive heart disease without heart failure; D64.9 Anemia, unspecified; E78.5 Hyperlipidemia, unspecified; F17.210 Nicotine dependence, cigarettes, uncomplicated; Z86.73 Personal history of transient ischemic attack (TIA), and cerebral infarction without residual deficits; F10.20 Alcohol dependence, uncomplicated; Y90.9 Presence of alcohol in blood, level not specified; Z79.82 Long term (current) use of aspirin; Z79.899 Other long term (current) drug therapy
CPT/HCPCS: 36415; 70450; 71045; 80053; 81001; 83036; 84484; 85025; 87086; 93005; 93306; 93880; 99285; G0378

== ENCOUNTER 2021-06-09 18:18 | Inpatient (IN) | payer MEDICARE, MEDICAID ==
[~2021-06-09] VITALS: Ht 167.6 cm; Wt 88.5 kg
[~2021-06-09 18:18] MED LIST changes: -ASPI-515 PO; +ASPI-963 PO; -CYCL-259 PO; +CYCL10TA2 PO; +DONE5TAB52 PO; -FOLI-17 PO; +FOLI1TAB32 PO; +GABA-826 PO; -NICO-487 TD; +NICO-587 TD
--- NOTE | 2021-06-09 18:47 | NUR ---
PT SENT HERE FROM [facility] FOR C/O PAIN UNDER TONGUE. PT'S DAUGHTER REPORTS PT HAS DEMENTIA AND LIVES AT [facility], REPORTS THERE'S A GROWTH UNDER HIS TONGUE THAT HAS WORSEN AND IT'S PAINFUL. DAUGHTER ANDREY [phone]
[2021-06-09] MEDS ORDERED: ONDANSETRON 2MG/ML, 2ML ONE (21:02)
[2021-06-09] MEDS ORDERED: MORPHINE SULFATE 4 MG/ML, 1ML ONE (21:02)
[2021-06-09 21:16] LABS: BASOPHILS % (AUTO) 1 % (0-1); EOSINOPHILS % (AUTO) 1 % (1-7); LYMPHOCYTES % (AUTO) 28 % (22-44); MEAN CORPUSCULAR HEMOGLOBIN 25.2 pg (27.5-34.5); MEAN CORPUSCULAR HGB CONC 31.8 g/dL (33.2-36.2); MEAN PLATELET VOLUME 7.5 fL (7.4-10.4); MONOCYTES % (AUTO) 6 % (2-9); NEUTROPHILS % (AUTO) 64 % (42-75); PLATELET COUNT 276 x10^3/uL (130-400); RED BLOOD COUNT 4.86 x10^6/uL (4.38-5.82); RED CELL DISTRIBUTION WIDTH 18.4 % (9.4-14.8)
[2021-06-09 21:17] LABS: ALANINE AMINOTRANSFERASE 23 U/L (12-78); ALBUMIN 3.5 g/dL (3.4-5.0); ANION GAP 4 mmol/L (5-15); CALCIUM 9.4 mg/dL (8.5-10.1); CHLORIDE 105 mmol/L (98-107); CREATININE 0.72 mg/dL (0.7-1.3)
[2021-06-09 21:19] LABS: ALKALINE PHOSPHATASE 92 U/L (45-117); BILIRUBIN,TOTAL 0.3 mg/dL (0.2-1.0); TOTAL PROTEIN 8.1 g/dL (6.4-8.2)
[2021-06-09] MEDS ORDERED: ONDANSETRON 2MG/ML, 2ML IVPush ONE (21:30)
[2021-06-09] MEDS ORDERED: MORPHINE SULFATE 4 MG/ML, 1ML IVPush PRN (21:30)
--- NOTE | 2021-06-09 21:59 | NUR ---
PT RESTING ON GURNEY IN NAD, VSS. STATES PAIN HAS DECREASED.
--- NOTE | 2021-06-09 22:00 | NUR ---
CALL TO [facility] TO GET UPDATED MEDICATION LIST, CALL WAS ANSWERED BY RESIDENT AT [facility] BEFORE GIVING THE PHONE TO NURSE AT [facility], PER NURSE SHE WILL FAX OVER MEDICATION LIST AND FACE SHEET.
--- NOTE | 2021-06-09 22:03 | NUR ---
[facility] [phone].
[2021-06-09] MEDS ORDERED: AMLO10TA4 PO (22:56)
[2021-06-09] MEDS ORDERED: MEMA5TAB PO (22:56)
[2021-06-09] MEDS ORDERED: DONE5TAB52 PO (22:56)
[2021-06-09] MEDS ORDERED: LISI40TA9 PO (22:56)
--- NOTE | 2021-06-09 23:01 | NUR ---
REPORT TO JONATHAN MARINELLI.
[2021-06-09] MEDS ORDERED: OMNIPAQUE 350 MG/ML, 100ML BOTTLE ONE (23:53)
[2021-06-10] MEDS ORDERED: ONDANSETRON 2MG/ML, 2ML IVPush PRN
[2021-06-10] MEDS ORDERED: AMPICILLIN/SULBACTAM 3 GM in SODIUM CHLORIDE 0.9% 100 ML IV ONE
[2021-06-10] MEDS ORDERED: morphine SULFATE 10 MG/ML, 1ML IVPush PRN
[2021-06-10] MEDS ORDERED: LABETALOL 5MG/ML, 20ML IVPush PRN
[2021-06-10] MEDS ORDERED: POLYETHYLENE GLYCOL 17 GM PACKET PO PRN
[2021-06-10] MEDS ORDERED: ACETAMINOPHEN 325 MG TABLET PO PRN
[2021-06-10] MEDS ORDERED: MELATONIN 5 MG TABLET PO PRN
[2021-06-10] MEDS ORDERED: KETOROLAC 30 MG/1 ML IV PRN
[2021-06-10] MEDS ORDERED: OXYcodone IR 5MG TABLET ONE (00:20)
[2021-06-10] MEDS: OXYcodone IR 5MG TABLET PO PRN ×3 (00:22→12:31)
--- NOTE | 2021-06-10 00:26 | NUR ---
ABX STARTED AT THIS TIME. CULTURES DRAWN X2 PRIOR TO START. PT UP TO RESTROOM WITH FAMILY
[2021-06-10] MEDS ORDERED: LORazepam 0.5MG TABLET PO PRN (00:30)
[2021-06-10] MEDS: ATORVASTATIN 40 MG TABLET PO SCH ×2 (00:30→22:14)
[2021-06-10] MEDS: DONEPEZIL 5 MG TABLET PO SCH ×2 (00:30→22:14)
--- NOTE | 2021-06-10 00:37 | NUR ---
REPORT TO MYNOR MARINELLI PT READY FOR TRANSFER TO FLOOR
[2021-06-10 01:10] VITALS: BP 109/73
[2021-06-10 04:40] LABS: BASOPHILS % (AUTO) 1 % (0-1); EOSINOPHILS % (AUTO) 1 % (1-7); LYMPHOCYTES % (AUTO) 30 % (22-44); MEAN CORPUSCULAR HEMOGLOBIN 25.4 pg (27.5-34.5); MEAN CORPUSCULAR HGB CONC 32.4 g/dL (33.2-36.2); MEAN PLATELET VOLUME 7.6 fL (7.4-10.4); MONOCYTES % (AUTO) 9 % (2-9); NEUTROPHILS % (AUTO) 59 % (42-75); PLATELET COUNT 247 x10^3/uL (130-400); RED BLOOD COUNT 4.69 x10^6/uL (4.38-5.82); RED CELL DISTRIBUTION WIDTH 18.1 % (9.4-14.8)
[2021-06-10 04:53] LABS: ANION GAP 3 mmol/L (5-15); CALCIUM 8.9 mg/dL (8.5-10.1); CHLORIDE 107 mmol/L (98-107); CREATININE 0.75 mg/dL (0.7-1.3)
[2021-06-10] MEDS: ENOXAPARIN 40 MG/0.4 ML SQ SCH (06:15)
[2021-06-10] MEDS ORDERED: AMPICILLIN/SULBACTAM 3 GM in SODIUM CHLORIDE 0.9% 100 ML IV SCH (06:30)
[2021-06-10 07:56] VITALS: BP 82/54
[2021-06-10 07:58] VITALS: BP 110/64
[2021-06-10] MEDS: GABAPENTIN 100 MG CAPSULE PO SCH ×2 (08:12→22:14)
[2021-06-10] MEDS: ASPIRIN 81 MG TABLET EC PO SCH (08:12)
[2021-06-10] MEDS: MEMANTINE 5MG TABLET PO SCH (08:12)
[2021-06-10] MEDS ORDERED: AMLODIPINE 10 MG TAB PO SCH (09:00)
[2021-06-10] MEDS ORDERED: LISINOPRIL 20 MG TABLET PO SCH (09:00)
[2021-06-10 14:42] VITALS: BP 101/64
[2021-06-10 19:42] VITALS: BP 115/72
[2021-06-11] MEDS: OXYcodone IR 5MG TABLET PO PRN ×4 (00:32→16:43)
[2021-06-11 01:31] VITALS: BP 103/58
[2021-06-11] MEDS: ENOXAPARIN 40 MG/0.4 ML SQ SCH (06:02)
[2021-06-11 06:35] VITALS: BP 104/65
[2021-06-11 08:46] VITALS: BP 121/72
[2021-06-11] MEDS: ASPIRIN 81 MG TABLET EC PO SCH (08:55)
[2021-06-11] MEDS: MEMANTINE 5MG TABLET PO SCH (08:58)
[2021-06-11] MEDS: GABAPENTIN 100 MG CAPSULE PO SCH (09:00)
[2021-06-11] MEDS ORDERED: AMLODIPINE 5 MG TABLET PO SCH (09:00)
[2021-06-11] MEDS ORDERED: AMLO-150 PO (12:56)
[2021-06-11 13:19] VITALS: BP 106/69
[2021-06-11] MEDS ORDERED: OXYC5TAB98 PO (16:17)
== END 2021-06-11 18:00 | DRG 147 ==
LOC: ED 20:54 → EDIP 06-10 00:03 → 4NW 06-10 01:07
PROVIDERS: ADMIT Internal Medicine; ATTEND Hospitalist
DX: D00.07 Carcinoma in situ of tongue (principal); F03.91 Unspecified dementia, unspecified severity, with behavioral disturbance; E78.5 Hyperlipidemia, unspecified; D50.9 Iron deficiency anemia, unspecified; I10 Essential (primary) hypertension; R13.10 Dysphagia, unspecified; L40.9 Psoriasis, unspecified; Z72.0 Tobacco use; Z83.3 Family history of diabetes mellitus; Z82.49 Family history of ischemic heart disease and other diseases of the circulatory system; Z79.899 Other long term (current) drug therapy; Z80.3 Family history of malignant neoplasm of breast; Z86.73 Personal history of transient ischemic attack (TIA), and cerebral infarction without residual deficits
CPT/HCPCS: 36415; 70487; 80048; 80053; 85025; 87040; 96374; 96375; 99285; G0378; J0295; J1650; J1885; J2405; Q9967; J2270

== ENCOUNTER → 2021-07-19 | Outpatient (CLI) | payer MEDICARE, MEDICAID ==
[~2021-07-19] MED LIST changes: +AMLO10TA4 PO; +LISI40TA9 PO; +MEMA5TAB PO; +OXYC5TAB98 PO
== END | disposition home or self-care (01) ==
LOC: PETCFH 13:38
PROVIDERS: ATTEND Specialist
DX: C02.1 Malignant neoplasm of border of tongue (principal); K57.30 Diverticulosis of large intestine without perforation or abscess without bleeding
CPT/HCPCS: 78815; A9552

== ENCOUNTER 2021-08-30 11:18 | Outpatient (CLI) | payer MEDICARE, MEDICAID | END 2021-08-30 23:59 | disposition home or self-care (01) | LOC: ROC 11:18 | PROVIDERS: ATTEND Radiology Radiation Oncology | DX: C02.1 Malignant neoplasm of border of tongue (principal) ==